=== PATIENT | female | born 1990 | race Asian ===

== ENCOUNTER 2024-08-25 06:36 | Emergency (ER) | payer OTHER, SELFPAY ==
[2024-08-25 06:48] VITALS: BP 104/65
[2024-08-25 06:52] VITALS: BP 100/62
[2024-08-25 09:04] VITALS: BMI 19.2
[2024-08-25] MEDS: TYLENOL 1000 MG PO (09:44)
--- NOTE | 2024-08-25 10:16 | ED.GENMED ---
History of Present Illness
General
Chief Complaint: Head Injury
Source: patient
Exam Limitations: none
Time Seen by Provider: 08/25/24 07:58
History of Present Illness
History of Present Illness:
34yoF with no significant past medical history presenting with her for evaluation after a fall. Patient was walking down the steps this morning around 5:30 AM when she missed a step. She fell down about 5 steps and struck the back of her
head on the carpeted stairs. No loss of consciousness. Patient had some blurred vision initially. She also reports headache, dizziness, and nausea. No vomiting or neck pain. She does not take any blood thinners.
Phy Exam
General Physical Exam
General Presentation: well appearing and no apparent distress
General age: appears stated age
General Skin: warm and dry
General Habitus: normal
General Mental: alert
ENT Exam
ENT Exam: normocephalic and other (No external signs of head trauma. No cervical spine tenderness with full ROM.)
Eye Exam
Eye Exam: PERRL
Neurological Exam
Neurological Exam: alert
[place] Coma Scale
Eye Opening: Spontaneous
Verbal Response: Oriented
Motor Response: Obeys Commands
GCS Total Score: 15
Skin Exam
Skin Exam: normal color and warm/dry
Psychiatric Exam
Psychiatric Exam: normal mood/affect
Course
Orders/Labs/Results
Orders:
Orders
08/25/24 09:12
CT Head W/o Iv Contrast Urgent
Comment:
Reason For Exam: head injury
Acetaminophen [Tylenol] 1,000 mg PO NOW STA
Vital Signs
Initial and Last Documented VS:
Initial Vital Signs
Temp Pulse BP Pulse Ox
97.8 F 70 104/65 97
08/25/24 06:48 08/25/24 06:48 08/25/24 06:48 08/25/24 06:48
Last Documented Vital Signs
Temp Pulse Resp BP Pulse Ox
98.1 F 68 16 100/62 98
08/25/24 06:52 08/25/24 06:52 08/25/24 06:52 08/25/24 06:52 08/25/24 06:52
MDM/Problems Addressed
Differential Diagnosis Includes:
34yoF here after a fall down steps with head strike. No LOC. C/o headache, nausea, dizziness. VSS. She is awake, alert, with a GCS of 15. No external signs of head trauma on exam. Cervical spine cleared via NEXUS criteria. Differential diagnosis
includes: closed head injury, concussion, intracranial hemorrhage, skull fracture
Initial ED plan: Check CT head. Tylenol for pain.
*Critical Care Note
Total Time (30-74mins, 75-104mins- exclusive of procedures): Not Applicable
Update Note
Update Note:
CT head is negative for acute findings. Patient is stable for discharge. Supportive care discussed including rest, hydration, and as needed Tylenol. Advised follow-up with PCP. ED return precautions discussed. Patient in agreement with plan and
was discharged in stable condition.
ED Attending Note
-
Portions of this chart may have been created with voice recognition software.� Occasional wrong word or��sound alike� substitutions may have occurred due to the inherent limitations of voice recognition software.
Discharge Plan
Departure
Patient Disposition: Home (Routine Discharge)
Date of Disposition: 08/25/24
Time of Disposition: 10:11
Patient with high blood pressure during this ER visit?: No
Discharge Problem:
Closed head injury, Fall down steps
Instructions: Head Injury in Adults (DC)
Referrals:
Riley Genao MD [Family Provider] -
Activity Restrictions/Additional Instructions:
Drink plenty of fluids and rest. Minimize screen time and activity for 48-72 hours. Take Tylenol as needed for pain.
Please follow-up with your family doctor. Return to the ER with any new or worsening symptoms.
Interventions
Interventions:
*Risk Screen - Suicide Last Done: 08/25/24 06:52
*Neglect/Abuse Screening Last Done: 08/25/24 06:52
ED- Neurological Assessment Last Done: 08/25/24 09:05
ED-Skin Assessment Last Done: 08/25/24 09:05
Discharge Date and Time
Print Language: SYRIAC
== END 2024-08-25 10:52 | disposition home or self-care (01) ==
LOC: EMR 06:36
PROVIDERS: EMERGENCY PHYSICIAN Emergency Medicine; FAMILY PHYSICIAN Family Medicine
DX: S09.90XA Unspecified injury of head, initial encounter (principal); W10.9XXA Fall (on) (from) unspecified stairs and steps, initial encounter
CPT/HCPCS: 99284; 70450